=== PATIENT | female | born 1995 | race Caucasian/White ===

== ENCOUNTER 2020-09-10 14:45 | Outpatient (REF) | payer OTHER, SELFPAY ==
--- NOTE | 2020-09-10 14:52 | US_ITS ---
EXAMINATION: US VENOUS ULTRASOUND WITH DOPPLER LOWER EXTREMITY, LEFT CLINICAL INFORMATION: History of DVT. COMPARISON: None available. TECHNIQUE: Ultrasound of the deep veins is performed from the hip to the calf with compression sonography and color and pulse Doppler assessment. Spectral analysis with color-flow imaging is performed. FINDINGS: There is no evidence of deep vein thrombosis from the groin to the calf. Normal vascular flow and compressibility of the veins demonstrated. There is superficial thrombophlebitis. There is a area of partial thrombus the left superficial saphenous vein. Patient indicates pain to lateral knee. Examination of this area shows varicose veins in the superficial soft tissues. No thrombus within these veins. No drainable fluid collection or inflammation. No popliteal cyst. US/US venous duplex LE LT IMPRESSION: 1. No DVT demonstrated in the left lower extremity. 2. Superficial thrombophlebitis. Small area of partial thrombus in the left superficial saphenous vein. 3. Small varicose veins in the area patient indicates is painful at the lateral knee. No thrombus within these veins however.
== END 2020-09-10 14:46 | disposition home or self-care (01) ==
LOC: HO.US 14:45
PROVIDERS: Visit Provider Family Medicine
DX: I82.409 Acute embolism and thrombosis of unspecified deep veins of unspecified lower extremity (principal)
CPT/HCPCS: 93971

== ENCOUNTER 2020-09-13 08:26 | Outpatient (REF) | payer OTHER, SELFPAY ==
[2020-09-13 11:19] LABS: MANUAL DIFF FLAG NO
[2020-09-13 11:44] LABS: Basophils Percent Auto 0.3 % (0-2); Eosinophils Absolute Auto 0.1 X10*3/uL (0.0-0.4); Eosinophils Percent Auto 0.9 % (0-4); Hematocrit 40.5 % (37-47); Hemoglobin 12.8 g/dl (12.0-16.0); Imm Gran Abs Auto 0.01 X10*3/uL (0.00-0.03); Imm Gran Pct Auto 0.2 % (0.0-0.4); Lymphocytes Percent Auto 30.3 % (20-40); Mean Corpuscular HGB Conc 31.6 g/dl (31.0-35.0); Mean Corpuscular Hemoglobin 28.9 pg (27.0-33.0); Mean Corpuscular Volume 91.4 fL (80-98); Mean Platelet Volume 10.7 fL (9.4-12.3); Monocytes Absolute Auto 0.7 X10*3/uL (0.1-1.2); Monocytes Percent Auto 10.4 % (2-11); Neutrophils Absolute Auto 3.7 X10*3/uL (2.0-8.3); Neutrophils Percent Auto 57.9 % (45-73); Platelet Count 311 X10*3/uL (160-400); Red Blood Count 4.43 X10*6/uL (4.20-5.50); Red Cell Distribution Width 13.1 % (11.0-16.0); White Blood Count 6.5 X10*3/uL (4.8-10.8)
[2020-09-13 12:01] LABS: Alanine Aminotransferase 15 U/L (0-31); Albumin Level 4.2 g/dL (3.5-5.0); Alkaline Phosphatase 39 U/L (39-117); Anion Gap 12 (12-20); Aspartate Amino Transferase 12 U/L (5-31); Bilirubin Total 0.7 mg/dL (0.0-1.0); Blood Urea Nitrogen 14 mg/dL (9-16); Calcium 8.9 mg/dL (8.4-10.2); Carbon Dioxide 25 mmol/L (22-29); Chloride 107 mmol/L (96-108); Cholesterol 220 mg/dL; Estimated Glomerular Filt Rate > 60; Glucose Fasting 96 mg/dL (60-99); HDL Cholesterol 39 mg/dL; LDL Cholesterol Calculated 166 mg/dl; Potassium 4.4 mmol/l (3.3-5.1); Sodium 140 mmol/L (135-145); Total Protein 6.8 g/dL (6.5-8.0); Triglycerides 78 mg/dL
[2020-09-13 12:22] LABS: TSH reflex Free T4 1.72 mIU/mL (0.32-4.0)
== END 2020-09-13 08:27 | disposition home or self-care (01) ==
LOC: HO.WFDLDS 08:26
PROVIDERS: Visit Provider Family Medicine
DX: Z00.00 Encounter for general adult medical examination without abnormal findings (principal)
CPT/HCPCS: 36415; 80053; 80061; 84443; 85025

== ENCOUNTER 2020-11-26 11:32 | Outpatient (REF) | payer OTHER, SELFPAY ==
[2020-11-26 14:55] LABS: Cholesterol 236 mg/dL; HDL Cholesterol 49 mg/dL; LDL Cholesterol Calculated 173 mg/dl; Triglycerides 71 mg/dL
== END 2020-11-26 11:33 | disposition home or self-care (01) ==
LOC: HO.WFDLDS 11:32
PROVIDERS: Visit Provider Family Medicine
DX: Z00.00 Encounter for general adult medical examination without abnormal findings (principal); E78.00 Pure hypercholesterolemia, unspecified
CPT/HCPCS: 36415; 80061

== ENCOUNTER 2021-08-19 11:49 | Outpatient (REF) | payer OTHER, SELFPAY | END 2021-08-19 11:50 | disposition home or self-care (01) | LOC: HO.HMGCLDS 11:49 | PROVIDERS: Visit Provider Internal Medicine | DX: Z20.822 Contact with and (suspected) exposure to COVID-19 (principal) | CPT/HCPCS: C9803; U0003; U0005 ==

== ENCOUNTER 2021-08-25 12:29 | Outpatient (REF) | payer OTHER, SELFPAY | END 2021-08-25 12:30 | disposition home or self-care (01) | LOC: HO.HMGCLDS 12:29 | PROVIDERS: Visit Provider Internal Medicine | DX: Z20.822 Contact with and (suspected) exposure to COVID-19 (principal) | CPT/HCPCS: C9803; U0003; U0005 ==

== ENCOUNTER 2022-01-05 11:28 | Outpatient (REF) | payer OTHER, SELFPAY ==
[2022-01-05 13:57] LABS: Cholesterol 178 mg/dL; HDL Cholesterol 48 mg/dL; LDL Cholesterol Calculated 118 mg/dl; Triglycerides 64 mg/dL
== END 2022-01-05 11:29 | disposition home or self-care (01) ==
LOC: HO.WFDLDS 11:28
PROVIDERS: Visit Provider Family Medicine
DX: Z00.00 Encounter for general adult medical examination without abnormal findings (principal); E78.00 Pure hypercholesterolemia, unspecified
CPT/HCPCS: 36415; 80061

== ENCOUNTER 2023-03-01 12:04 | Outpatient (REF) | payer OTHER, SELFPAY ==
[2023-03-01 15:11] LABS: Alanine Aminotransferase 13 U/L (0-31); Albumin Level 4.1 g/dL (3.5-5.0); Alkaline Phosphatase 42 U/L (39-117); Anion Gap 12 (12-20); Aspartate Amino Transferase 12 U/L (5-31); Bilirubin Total 0.6 mg/dL (0.0-1.0); Blood Urea Nitrogen 9 mg/dL (9-16); Calcium 9.5 mg/dL (8.4-10.2); Carbon Dioxide 26 mmol/L (22-29); Chloride 106 mmol/L (96-108); Cholesterol 185 mg/dL; Estimated Glomerular Filt Rate > 60; Glucose Fasting 87 mg/dL (60-99); HDL Cholesterol 40 mg/dL; LDL Cholesterol Calculated 122 mg/dl; Sodium 140 mmol/L (135-145); Triglycerides 117 mg/dL
[2023-03-01 15:13] LABS: TSH reflex Free T4 1.98 uIU/mL (0.32-4.0)
== END 2023-03-01 12:05 | disposition home or self-care (01) ==
LOC: HO.WFDLDS 12:04
PROVIDERS: Visit Provider Family Medicine
DX: Z00.00 Encounter for general adult medical examination without abnormal findings (principal); Z20.2 Contact with and (suspected) exposure to infections with a predominantly sexual mode of transmission
CPT/HCPCS: 36415; 80053; 80061; 84443; 85025

== ENCOUNTER 2023-03-04 14:01 | Outpatient (AMB) | payer OTHER, SELFPAY ==
[2023-03-04 14:06] VITALS: BP 122/78; PULSE 67; O2SAT 99; BMI 38.9
--- NOTE | 2023-03-04 14:06 | MHC.PC.OV ---
Vital Signs 03/04/23 14:06 Height 5 ft 7 in Weight 248 lb 2 oz BMI 38.9 BP 122/78 Blood Pressure Location Lt brachial Position Sitting Pulse 67 Pulse Source Pulse Oximeter Pulse Oximetry (%) 99 Oxygen Delivery Method Room Air Intake Visit Reasons: CPE with f/u labs and health maintenance Intake Note: Patient is here for physical and follow up on labs. Allergies No Known Allergies Allergy (Verified 03/04/23 14:08) Tobacco use date assessed: 03/04/23 Dental Screening Dental Screen Date: 03/04/23 Did you have a dental problem in the last 6 months where you did not have access to dental care?: No Was dental information given to patient?: No HPI CPE with f/u labs and health maintenance HPI Details 27 y/o female presents for a CPE with f/u labs and health maintenance. Labs were drawn 03/01/23. Her labs were fine. She is on ezetimibe 10mg daily. [facility] Medical History Left leg DVT Vasovagal near syncope Surgical History No significant past surgical history Family History Mother No problems noted. Father No problems noted. 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 Carlito Frank, Taya Swartz, Eduin Neumann and colleagues, with an educational maynor from [employer]. Review of Systems Const Denies chills, Denies fatigue, Denies fever(s), Denies headache(s) and Denies weakness Eyes Denies change in vision ENT Denies dizziness, Denies headache(s), Denies hearing loss, Denies nasal congestion, Denies sinus pain, Denies sinus pressure and Denies sore throat Card Denies chest pain, Denies lightheadedness, Denies dyspnea and Denies other (palpitations) Resp Denies cough, Denies dyspnea and Denies wheezing GI Denies abdominal pain, Denies melena, Denies hematochezia, Denies change in bowel habits, Denies dyspepsia and Denies nausea Denies hematuria and Denies dysuria Musc Denies abnormal gait, Denies myalgias, Denies arthralgias, Denies numbness and Denies tingling Skin/Breast Denies rash, Denies unusual bruising and Denies wounds Neuro Denies abnormal gait, Denies dizziness, Denies headache(s), Denies memory loss, Denies numbness, Denies Sensory deficit (Neuro), Denies tingling and Denies weakness Psych Denies anxiety, Denies depression and Denies memory loss Endo Denies cold intolerance, Denies fatigue, Denies heat intolerance, Denies polydipsia and Denies polyuria Micky/Lymph Denies easy bleeding and Denies easy bruising Aller/Immun Denies wheezing Physical exam (Primary Care) Vital Signs: Last Vital Signs Pulse 67 03/04/23 14:06 BP 122/78 03/04/23 14:06 Pulse Ox 99 03/04/23 14:06 Oxygen Delivery Method Room Air 03/04/23 14:06 BMI result Body Mass Index 38.9 Tobacco/Smoking Status: Tobacco use Status Tobacco use date assessed 03/04/23 03/04/23 14:19 Patient Tobacco Use Status Never used Tobacco 03/04/23 14:16 e-Cigarette/Vaping Use Never Used 03/04/23 14:16 Const General: no acute distress, well developed, alert and awake Nutritional Appearance: well nourished Orientation/consciousness: patient oriented x3 HENMT Head: Yes normocephalic and Yes atraumatic Ears: hearing grossly normal bilaterally and TM's normal bilaterally General nose exam: Normal external nose present and Normal nares present Mouth: Normal oral and palatal mucosa present and moist mucous membranes Teeth and gingiva: dentition normal Throat: Yes posterior oropharynx normal Eyes General: appearance normal, both eyes and all related structures Pupils: Equal, round and reactive pupils present and Pupil accommodation reflex normal EOM: EOMs intact bilaterally Neck Neck: Yes normal visual inspection, Yes no lymphadenopathy and Yes trachea midline Thyroid: Thyroid normal Carotids: no bruits Lymphatic: no lymphadenopathy noted Chest Chest palpation & inspection: normal inspection of the chest Resp Effort & Inspection: normal respiratory effort Auscultation: clear to auscultation bilaterally Cardio Rate: regular rate Rhythm: regular rhythm Heart sounds: S1 normal heart sound present, S2 normal heart sound present, no gallops, Murmur heart sound present (2/6 systolic murmur over the aortic region and mitral region, loudest over ) and no rubs Bruits: no abdominal aortic bruits and no carotid bruits GI Palpation (GI): No Abdominal aortic bruit present, Soft to palpation, nontender, No hepatosplenomegaly present and No Rebound tenderness present Auscultation: normal bowel sounds General: Yes no CVA tenderness Back/Spine/Pelvis Back: no CVA tenderness Cervical Spine: cervical ROM normal and No Cervical spine tenderness Thoracic/Lumbar Spine: thoraco-lumbar ROM normal, No pain with thoraco-lumbar ROM, No thoracic spinal tenderness and No lumbar spinal tenderness Skin Lesions: no lesions Rashes: no rashes Trauma: no lacerations or abrasions Wounds: no wounds Nails: normal Neuro General: patient oriented x3 Cranial nerves: Yes Equal, round and reactive pupils present Cognition (Neuro): normal cognition Gait exam (Neuro): Normal gait present Motor exam (neuro): 5/5 motor strength present throughout Sensory Exam: No Sensory deficit (Neuro) Deep tendon reflexes (DTR's): Right patellar reflex intensity grade: 2+ and Left patellar reflex intensity grade: 2+ Extrem General: Yes normal to inspection and No edema Psych Appearance: grossly normal Affect: normal affect Attitude: cooperative Thought process: Normal thought process present Assessment and Plan Assessment & Plan (1) Annual physical exam: Code(s): Z00.00 - Encounter for general adult medical examination without abnormal findings Plan: 27-year-old female presents for complete physical exam Encouraged healthy diet with active lifestyle and plenty of exercise (2) Anxiety with depression: Code(s): F41.8 - Other specified anxiety disorders Plan: This has essentially resolved with a job change She will let me know if any symptoms resume Currently she feels no need for medication or therapist (3) Murmur: Code(s): R01.1 - Cardiac murmur, unspecified Plan: 2/6 systolic murmur loudest over aorta Check echocardiogram (4) Hypercholesterolemia: Code(s): E78.00 - Pure hypercholesterolemia, unspecified Plan: Lipids are controlled. She is on Zetia Some decrease in her HDL which coincides with job change and difference in activity level. Encouraged exercise (5) GERD (gastroesophageal reflux disease): Code(s): K21.9 - Gastro-esophageal reflux disease without esophagitis Plan: Trial famotidine She will let me know if symptoms persist (6) Bruise: Code(s): T14.8XXA - Other injury of unspecified body region, initial encounter Plan: Small bruises at shins. No expanding bruises or dependent tracking of hematoma. No significant heavy periods, nose bleeds minimal gum bleeding (7) Screening for cervical cancer: Code(s): Z12.4 - Encounter for screening for malignant neoplasm of cervix Plan: Overdue for Pap smear-referred to lead database administrator Orders: Orders CA echo transthoracic complete Today R01.1 - Cardiac murmur, unspecified Referrals [facility] WAITER/WAITRESS Referral Z12.4 - Encounter for screening for malignant neoplasm of cervix Medications: New famotidine 20 mg PO DAILY 30 tabs 3RF 30 days Discontinued bupropion HCl Discontinued Reason: Patient no longer taking 75 mg PO BID 30 days 60 tabs 2RF Coding Level of Care Code Est Pt Level 3 (19793) Diagnoses Annual physical exam Z00.00 Anxiety with depression F41.8 Murmur R01.1 Hypercholesterolemia E78.00 GERD (gastroesophageal reflux disease) K21.9 Bruise T14.8XXA Screening for cervical cancer Z12.4
== END 2023-03-04 14:55 | disposition home or self-care (01) ==
PROVIDERS: Visit Provider Family Medicine
DX: Z00.00 Encounter for general adult medical examination without abnormal findings (principal); F41.8 Other specified anxiety disorders; K21.9 Gastro-esophageal reflux disease without esophagitis; R01.1 Cardiac murmur, unspecified; E78.00 Pure hypercholesterolemia, unspecified; T14.8XXA Other injury of unspecified body region, initial encounter
CPT/HCPCS: 99395

== ENCOUNTER → 2023-09-06 14:50 | Outpatient (REF) | payer OTHER, SELFPAY ==
--- NOTE | 2023-09-06 14:52 | CA_ITS ---
Transthoracic Echocardiogram Patient (Last, First, Middle): Yonny Davison, Gender: Female Date of : 1995 Age: 27 Procedure Date: 09/06/2023 Procedure Type: Transthoracic Echocardiogram Location: OP Height: 170.18 cm Weight: 112.49 kg BSA: 2.22 m2 Heart Rate: 69 bpm BP: 118 / 74 mmHg Printing Press Machine Operator: SB Referring MD: Chevy Cunningham MD Symptoms: R01.1 - Cardiac murmur, unspecified Study Quality: Adequate w contrast ECG Rhythm: Sinus Conclusions: - The left ventricular systolic function is normal. The calculated ejection fraction is 65% by biplane method. - No obvious valvular pathology seen on this study. Findings Procedure Information Contrast agent, definity, is being given per protocol without apparent complications. Left Ventricle Normal left ventricular cavity size. There is normal left ventricular wall thickness. The left ventricular systolic function is normal. The calculated ejection fraction is 65% by biplane method. There is no evidence of regional wall motion abnormalities. Diastolic function is normal for age. Right Ventricle Normal right ventricular cavity size and systolic function. Atria Both atria are normal in size. Aortic Valve There is a normal trileaflet aortic valve. There is no aortic valve stenosis. There is no aortic valve regurgitation. Mitral Valve The mitral valve appears normal. There is no mitral valve regurgitation. There is no mitral valve stenosis. Pulmonic Valve The pulmonic valve is likely normal. Tricuspid Valve Normal tricuspid valve structure. There is mild tricuspid valve regurgitation. There is no evidence of pulmonary hypertension. Great Vessels The asc aorta is normal in size. Venous The inferior vena cava is normal in size and collapses less than 50% with inspiration. Pericardium/Pleural There is no evidence of pericardial effusion. Prior Study Comparison No prior study available for comparison. Recommendations, Care & Conclusions No obvious valvular pathology seen on this study. Measurements 2D Linear Measurements IVSd: 0.66 0.6-0.9/0.6-1.0 cm LVIDd: 4.96 3.9-5.3/4.2-5.9 cm LVIDd Index: 2.23 2.4-3.2/2.2-3.1 cm/m2 LVIDs: 3.24 2.0-3.6 cm LVPWd: 0.43 0.7-1.1 cm LA Diam: 4.00 2.7-3.8/3.0-4.0 cm LAIDs Index: 1.80 1.5-2.3 cm/m2 LV Mass: 103.28 67-162/88-224 g LV Mass Index: 46.52 43-95/49-115 g/m2 LVOT Diam: 1.90 3.0+(-)1.3 cm 2D Systolic Function EF 4C: 62.60 >55% EF 2C: 64.30 >55% EF BiP: 64.50 >55% Mitral Valve MV Pk E: 1.02 MV PK A: 0.53 MV Decel Time: 194.00 E/A: 1.90 E'Lateral: 15.20 E'Medial: 11.30 E/E' Med: 9.00 E/E' Lat: 6.70 PHT: 57.00 MVA PHT: 3.86 Decel [place]: 5.22 Aortic Valve AoV Pk Trev: 1.83 AoV Mn Trev: 1.26 AoV VTI: 0.37 AoV Pk Grad: 13.00 Aov Mn Grad: 7.00 ANASTASIIA Cont.VTI: 2.27 LVOT LVOT Pk Trev: 1.35 LVOT Mn Trev: 0.99 LVOT VTI: 0.29 LVOT Pk Grad: 7.00 LVOT Mn Grad: 5.00 LVOT Diam: 1.90 LVOT Area: 2.84 Diastolic Function MV Pk E: 1.02 MV Pk A: 0.53 E/A: 1.90 E'Medial: 11.30 E/E' Med: 9.00 E' Laterial: 15.20 E/E' Lat: 6.70 Right Ventricle TAPSE (mm): 23.80 TVS' Trev: 15.60 Tricuspid Valve TR Pk Trev: 2.24 TR Pk Grad: 20.00 RA Press: 8.00 RVSP: 23.00 Great Vessels Aorta Sinus of Valsalva: 2.50 2.0-3.5 cm Ao Asc: 2.20 2.1-3.4 cm Ao Arch: 2.30 Pulmonary Veins Pulm Vein S/D 1.30 Pulmonary Valve PV Pk Trev: 1.32 Peak PV Grad: 7.00 Updated in Other Vendor System with Status of Final Sergio Mo MD electronically signed on 09/07/2023 11:40:03 AM with status of Final
== END ==
LOC: HO.CARD 14:50
PROVIDERS: PCP Family Medicine; Visit Provider Family Medicine
DX: R01.1 Cardiac murmur, unspecified (principal)
CPT/HCPCS: 93306; Q9957

== ENCOUNTER → 2023-09-06 14:52 | Outpatient (BNV) | payer OTHER, SELFPAY | PROVIDERS: PCP Family Medicine; Visit Provider Internal Medicine | DX: I36.1 Nonrheumatic tricuspid (valve) insufficiency (principal) | CPT/HCPCS: 93306 ==

== ENCOUNTER 2023-10-15 14:32 | Outpatient (AMB) | payer OTHER, SELFPAY ==
[2023-10-15 14:35] VITALS: BP 122/76; PULSE 89; O2SAT 99; BMI 39.5
--- NOTE | 2023-10-15 14:35 | MHC.PC.OV ---
Vital Signs 10/15/23 14:35 Height 5 ft 7 in Weight 252 lb 8 oz BMI 39.5 BP 122/76 Blood Pressure Location Lt brachial Position Sitting Pulse 89 Pulse Source Pulse Oximeter Pulse Oximetry (%) 99 Oxygen Delivery Method Room Air Intake Visit Reasons: Specialist Follow up Intake Note: Patient is here following up on echocardiogram. Patient is complaining of body aches for years,she states aches up and down arms, legs, joints, and hips. Allergies No Known Allergies Allergy (Verified 10/15/23 14:41) Tobacco use date assessed: 10/15/23 Dental Screening Dental Screen Date: 10/15/23 Did you have a dental visit in the last 12 months?: No Did you have a dental problem in the last 6 months where you did not have access to dental care?: No Was dental information given to patient?: Yes HPI Specialist Follow up HPI Details 27 y/o female presents to f/u a systolic murmur. Had ordered an echocardiogram. Echocardiogram done 09/06/23 and was fine. Pt reports polyarthralgia. [facility] Medical History Left leg DVT Vasovagal near syncope Surgical History No significant past surgical history Family History Mother No problems noted. Father No problems noted. 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 Carlito Frank, Taya Swartz, Eduin Neumann and colleagues, with an educational maynor from [employer]. Review of Systems Const Denies chills, Denies fatigue, Denies fever(s), Denies headache(s) and Denies weakness ENT Denies dizziness and Denies headache(s) Card Denies dyspnea Resp Denies cough, Denies dyspnea, Denies wheezing and Denies other (shortness of breath) Musc Denies numbness and Denies tingling Neuro Denies dizziness, Denies headache(s), Denies numbness, Denies tingling and Denies weakness Psych Denies anxiety and Denies depression Endo Denies fatigue Aller/Immun Denies wheezing Physical exam (Primary Care) Vital Signs: Last Vital Signs Pulse 89 10/15/23 14:35 BP 122/76 10/15/23 14:35 Pulse Ox 99 10/15/23 14:35 Oxygen Delivery Method Room Air 10/15/23 14:35 BMI result Body Mass Index 39.5 Tobacco/Smoking Status: Tobacco use Status Tobacco use date assessed 10/15/23 10/15/23 14:50 Patient Tobacco Use Status Never used Tobacco 10/15/23 14:40 e-Cigarette/Vaping Use Never Used 10/15/23 14:40 Const General: well developed; No acute distress Nutritional Appearance: well nourished Orientation/consciousness: patient oriented x3 HENMT Head: Yes normocephalic and Yes atraumatic Eyes General: appearance normal, both eyes and all related structures Pupils: Equal, round and reactive pupils present EOM: EOMs intact bilaterally Resp Effort & Inspection: normal respiratory effort Auscultation: clear to auscultation bilaterally Cardio Rate: regular rate Rhythm: regular rhythm Heart sounds: S1 normal heart sound present, S2 normal heart sound present, no gallops, Murmur heart sound present (2/6 persistent systolic murmur ) and no rubs Neuro General: patient oriented x3 and gait normal Cranial nerves: Yes Equal, round and reactive pupils present Psych Affect: normal affect Assessment and Plan Assessment & Plan (1) Murmur: Code(s): R01.1 - Cardiac murmur, unspecified Plan: Patient?has?a?2/6?persistent?systolic?murmur Echocardiogram?is?normal Benign?murmur (2) Polyarthralgia: Code(s): M25.50 - Pain in unspecified joint Plan: Pain?at?multiple?joints?and?locations?that?appear?consistent?with?fibromyalgia. Will?check?inflammatory?and?autoimmune?markers?however?as?that?is?a?diagnosis?of?exclusion. Also?has?a?history?of?anxiety?and?depression?which?can?also?be?a?cause?for?somatic?aches?and?pains?or?be?further?associated?with?fibromyalgia. Patient?notes?a?family?history?of?lupus.??She?also?is?concerned?about?hyper?mobile?joints. As?above,?inflammatory?and?autoimmune?markers?are?ordered. Will?follow-up?on?these?in?4-6?weeks. May?need?referral?to?Rheumatology?and?or?physical?therapy Orders: Orders CRP High Sensitivity Today M25.50 - Pain in unspecified joint Lyme IgG/IgM w/reflex to WB Today M25.50 - Pain in unspecified joint WERNER Reflex Titer and Pattern Today M25.50 - Pain in unspecified joint Erythrocyte Sedimentation Rate Today M25.50 - Pain in unspecified joint Complete Blood Count Auto Diff Today M25.50 - Pain in unspecified joint, Z00.00 - Encounter for general adult medical examination without abnormal findings Rheumatoid Factor Today M25.50 - Pain in unspecified joint Coding Level of Care Code Est Pt Level 3 (52993) Diagnoses Murmur R01.1 Polyarthralgia M25.50
== END 2023-10-15 15:07 | disposition home or self-care (01) ==
PROVIDERS: PCP Family Medicine; Visit Provider Family Medicine
DX: R01.1 Cardiac murmur, unspecified (principal); M25.50 Pain in unspecified joint
CPT/HCPCS: 99213

== ENCOUNTER 2023-11-15 08:36 | Outpatient (REF) | payer OTHER, SELFPAY ==
[2023-11-15 11:52] LABS: Erythrocyte Sedimentation Rate 7 MM/HR (0-20)
[2023-11-15 12:09] LABS: Basophils Percent Auto 0.5 % (0-2); Eosinophils Absolute Auto 0.1 X10*3/uL (0.0-0.4); Hematocrit 39.1 % (37.0-47.0); Hemoglobin 12.4 g/dl (12.0-16.0); Imm Gran Abs Auto 0.01 X10*3/uL (0.00-0.03); Imm Gran Pct Auto 0.2 % (0.0-0.4); Lymphocytes Absolute Auto 1.8 X10*3/uL (1.2-4.9); Lymphocytes Percent Auto 31.5 % (20-40); MANUAL DIFF FLAG SCAN; Mean Corpuscular HGB Conc 31.7 g/dl (31.0-35.0); Mean Corpuscular Hemoglobin 29.4 pg (27.0-33.0); Mean Corpuscular Volume 92.7 fL (80.0-98.0); Mean Platelet Volume 12.1 fL (9.4-12.3); Monocytes Absolute Auto 0.5 X10*3/uL (0.1-1.2); Monocytes Percent Auto 8.4 % (2-11); Neutrophils Absolute Auto 3.3 x10*3/uL (2.0-8.3); Neutrophils Percent Auto 58.4 % (45-73); PLT CLUMP 1; Red Blood Count 4.22 X10*6/uL (4.20-5.50); SCAN SMEAR FLAG 1
[2023-11-15 12:22] LABS: Appearance Urine Cloudy; Color Urine Yellow; Glucose Urine UA Negative (Negative); Leukocyte Esterase Urine Negative (Negative); Nitrite Urine Negative (Negative); Specific Gravity - Urine 1.025 (1.005-1.025); Urine Blood Negative (Negative); Urine Ketones Negative (Negative); Urine Protein Negative (Neg-Trace)
[2023-11-15 12:31] LABS: Rheumatoid Factor < 13.0 IU/mL (<15.0)
[2023-11-15 13:24] LABS: Creatinine Urine 210.03 mg/dL; Microalbum/Creatinine Ratio Ur 9.5 ug/mg cr (<30)
[2023-11-15 13:42] LABS: Platelet Count 246 X10*3/uL (160-400); White Blood Count 5.7 X10*3/uL (4.8-10.8)
[2023-11-15 13:43] LABS: SLIDE REVIEW VERIFIED
[2023-11-16 13:12] LABS: Lyme Abs Screen <0.90 index
[2023-11-16 17:48] LABS: CRP High Sensitivity 2.9 mg/L
[2023-11-17 14:40] LABS: Anti Nuclear Antibody Screen NEGATIVE (NEGATIVE)
== END 2023-11-15 08:37 | disposition home or self-care (01) ==
LOC: HO.WFDLDS 08:36
PROVIDERS: Visit Provider Family Medicine
DX: Z00.00 Encounter for general adult medical examination without abnormal findings (principal); M25.50 Pain in unspecified joint; I10 Essential (primary) hypertension
CPT/HCPCS: 36415; 81003; 82043; 82570; 85025; 85652; 86038; 86141; 86431; 86617; 86618

== ENCOUNTER 2023-11-19 09:42 | Outpatient (AMB) | payer OTHER, SELFPAY ==
[2023-11-19 09:45] VITALS: BP 118/70; PULSE 78; O2SAT 97; BMI 38.8
--- NOTE | 2023-11-19 09:45 | MHC.PC.OV ---
Vital Signs 11/19/23 09:45 Height 5 ft 7 in Weight 248 lb BMI 38.8 BP 118/70 Blood Pressure Location Lt brachial Position Sitting Pulse 78 Pulse Source Pulse Oximeter Pulse Oximetry (%) 97 Oxygen Delivery Method Room Air Intake Visit Reasons: f/u polyarthralgia Intake Note: Patient is here to follow up on polyarthralgia. Allergies No Known Allergies Allergy (Verified 11/19/23 09:48) Medication List - Last Reconciled 11/19/23 by Chevy Cunningham MD ezetimibe 10 mg PO DAILY 90 days Tobacco use date assessed: 11/19/23 Dental Screening Dental Screen Date: 11/19/23 Did you have a dental visit in the last 12 months?: No Did you have a dental problem in the last 6 months where you did not have access to dental care?: No Was dental information given to patient?: No HPI f/u polyarthralgia HPI Details 28 y/o female presents to f/u polyarthralgia. Labs were fine. Pt also reports some allergies. [facility] Medical History Left leg DVT Vasovagal near syncope Surgical History No significant past surgical history Family History Mother No problems noted. Father No problems noted. 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 1. Little interest or pleasure in doing things: not at all 2. Feeling down, depressed, or hopeless: nearly every day 3. Trouble falling or staying asleep, or sleeping too much: nearly every day 4. Feeling tired or having little energy: nearly every day 5. Poor appetite or overeating: not at all 6. Feeling bad about yourself - or that you are a failure or have let yourself or your family down: not at all 7. Trouble concentrating on things, such as reading the newspaper or watching television: several days 8. Moving or speaking so slowly that other people could have noticed. Or the opposite - being so fidgety or restless that you have been moving around a lot more than usual: not at all 9. Thoughts that you would be better off or of hurting yourself in some way: not at all Total score: 10 Depression Screening Interpretation: Positive Depression Screening Done: Yes Source: Developed by Drs. Carlito Frank, Taya Swartz, Eduin Neumann and colleagues, with an educational maynor from [employer]. Thrive Questionnaire Date Thrive assessed: 11/19/23 I am a: Patient What is your living situation today?: I have a steady place to live Within the past 12 months, did the food you bought not last and you didn't have the money to get more?: Never true Within the past 12 months, did you worry whether your food would run out before you got money to buy more?: Never true Do you have trouble paying for medicines?: No Do you have trouble getting transportation to medical appointments?: No Do you have trouble paying your heating and electricity bill?: No Do you have trouble taking care of your child, family member or friend?: No Do you have trouble with day-to-day activities such as bathing, preparing meals, shopping, managing finances, etc.?: No Are you currently unemployed and looking for a job?: No Are you interested in more education?: No THRIVE Score: 0 AUDIT C Alcohol Use Questionnaire (AUDIT-C) 1. How often do you have a drink containing alcohol?: Monthly or less 2. How many drinks containing alcohol do you have on a typical day when you are drinking?: 1 or 2 3. How often do you have six or more drinks on one occasion?: Never Total Score: 1 LUCERO-7 AMB Questionnaire LUCERO-7 Date LUCERO - 7 assessed: 11/19/23 Feeling nervous, anxious, or on edge: 1 = Several days Not being able to stop or control worryin = Not at all Worrying too much about different things: 0 = Not at all Trouble relaxin = Several days Being so restless that it is hard to sit still: 0 = Not at all Becoming easily annoyed or irritable: 0 = Not at all Feeling afraid as if something awful might happen: 0 = Not at all Total LUCERO-7 score (0-4 normal; 5-9 mild; 10-14 moderate; 15-21 severe): 2 Source: Developed by Drs. Carlito Frank, Taya Swartz, Eduin Neumann and colleagues, with an educational maynor from [employer]. Review of Systems Const Denies chills, Denies fatigue, Denies fever(s), Denies headache(s) and Denies weakness ENT Denies dizziness and Denies headache(s) Card Denies dyspnea Resp Denies cough, Denies dyspnea, Denies wheezing and Denies other (shortness of breath) Musc Denies numbness and Denies tingling Neuro Denies dizziness, Denies headache(s), Denies numbness, Denies tingling and Denies weakness Psych Denies anxiety and Denies depression Endo Denies fatigue Aller/Immun Denies wheezing Physical exam (Primary Care) Vital Signs: Last Vital Signs Pulse 78 11/19/23 09:45 BP 118/70 11/19/23 09:45 Pulse Ox 97 11/19/23 09:45 Oxygen Delivery Method Room Air 11/19/23 09:45 BMI result Body Mass Index 38.8 Tobacco/Smoking Status: Tobacco use Status Tobacco use date assessed 11/19/23 11/19/23 09:56 Patient Tobacco Use Status Never used Tobacco 11/19/23 09:56 e-Cigarette/Vaping Use Never Used 11/19/23 09:56 PHQ-9: PHQ-9 Score PHQ-9: Total score 10 11/19/23 09:56 Depression Screening Interpretation: Positive Thrive Assessment: Date of Thrive Assessment Date Thrive assessed 11/19/23 11/19/23 09:56 Const General: well developed; No acute distress Nutritional Appearance: well nourished Orientation/consciousness: patient oriented x3 HENMT Head: Yes normocephalic and Yes atraumatic Eyes General: appearance normal, both eyes and all related structures Pupils: Equal, round and reactive pupils present EOM: EOMs intact bilaterally Resp Effort & Inspection: normal respiratory effort Neuro General: patient oriented x3 and gait normal Cranial nerves: Yes Equal, round and reactive pupils present Psych Affect: normal affect Assessment and Plan Assessment & Plan (1) Polyarthralgia: Code(s): M25.50 - Pain in unspecified joint Plan: Ongoing?polyarthralgia?with?bilateral?hip?and?him?pain?also?some?upper?chest?and?back?pain. Lab?work?including?inflammatory?markers,?rheumatoid?factor?and?Lyme?testing?are?all?negative Patient?is?concerned?about?hypermobility?syndrome?and?hyper?mobile?joints Will?refer?her?to?Rheumatology We?discussed?today?that?based?on?her?symptoms?and?if?she?has?no?other?explanations,?fibromyalgia?is?more?likely. Briefly?discussed?medications?such?as?duloxetine?and?exercise. (2) Allergies: Code(s): T78.40XA - Allergy, unspecified, initial encounter Plan: She?can?use?xaoi-zli-fzpkjvz?medications?such?as?Zyrtec?or?Ariana Also?briefly?discuss?nasal?steroids?and?antihistamine?eyedrops (3) Murmur: Code(s): R01.1 - Cardiac murmur, unspecified Plan: Echocardiogram?is?unremarkable. Faint?benign?murmur?unchanged Orders: Orders XR hand LT 2V Today M25.50 - Pain in unspecified joint XR hips LORRAINE min 3V Today M25.50 - Pain in unspecified joint, M25.551 - Pain in right hip, M25.552 - Pain in left hip XR hand RT 2V Today M25.50 - Pain in unspecified joint Referrals Rheumatology Referral M25.50 - Pain in unspecified joint Coding Level of Care Code Est Pt Level 3 (03061) Diagnoses Polyarthralgia M25.50 Allergies T78.40XA Murmur R01.1
== END 2023-11-19 10:22 | disposition home or self-care (01) ==
PROVIDERS: PCP Family Medicine; Visit Provider Family Medicine
DX: M25.50 Pain in unspecified joint (principal); T78.40XA Allergy, unspecified, initial encounter; R01.1 Cardiac murmur, unspecified
CPT/HCPCS: 99213

== ENCOUNTER 2024-01-04 12:46 | Outpatient (AMB) | payer OTHER, SELFPAY ==
--- NOTE | 2024-01-04 13:00 | A.OFFVIS_ITS ---
Vital Signs 01/04/24 13:01 Height 5 ft 7 in Weight 250 lb 7.122 oz BMI 39.2 BP 122/66 Blood Pressure Location Rt brachial Position Sitting Pulse 88 Pulse Source Pulse Oximeter Pulse Oximetry (%) 100 Oxygen Delivery Method Room Air Intake Visit Reasons: Joint Pain Intake Note: New patient presents today for consult, internally referred by PCP Dr Cunningham. She is concerned with hypermobility. C/o pain in multiple joints. Reports L knee injury aprox 2020, slipped and tore ligaments, seen at [facility]. She states she was in a full leg brace x 1 month and developed DVT's. 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 She is also concerned with hypermobility. She states that she has had multiple areas of pain for many years including her neck, back, shoulders, arms, elbows, knees, hips. She stated that she slipped and fell 2020 and door multiple ligaments in her left knee. She was in a long raise that started at her hip and ended in her ankle. She developed DVTs and SVTs and was on anticoagulation for approximately 6 months. She states that she has always been hypermobile, she believes that right knee was dislocated once a few years ago but she quickly put it back in place. She did not need any medical attention. Difficulty falling and staying asleep. She has history of anxiety and was on 2 different the presence in the past but they made her sluggish she was evaluated by a psychotherapist in the past but did not feel the therapist was a good fit. She is unaware of any family history of an autoimmune rheumatic disease except for her maternal aunt who was diagnosed with lupus. [facility] Medical History Left leg DVT Vasovagal near syncope Surgical History No significant past surgical history Family History Mother No problems noted. Father No problems noted. 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 Current occupational exposures/hazards: No Sexual orientation: Straight/Heterosexual Gender identity: Female Cognitive needs: No Hearing needs: No Vision needs: Yes (Patient wears glasses) Review of Systems Const Reports headache(s) and Reports weight gain Eyes Reports dry eyes ENT Reports dizziness, Reports headache(s) and Reports tinnitus Musc Reports arthralgias, Denies joint swelling and Reports stiffness Skin/Breast Reports unusual bruising Neuro Reports dizziness and Reports headache(s) Psych Reports abnormal sleep pattern and Reports anxiety Physical Exam Vital Signs: Last Vital Signs Pulse 88 01/04/24 13:01 BP 122/66 01/04/24 13:01 Pulse Ox 100 01/04/24 13:01 Oxygen Delivery Method Room Air 01/04/24 13:01 BMI result Body Mass Index 39.2 Const General: cooperative, healthy appearing and comfortable Nutritional Appearance: obese morbidly obese Orientation/consciousness: patient oriented x3 Limitations: no limitations HEENT Head: Yes normocephalic and Yes atraumatic Mouth: moist mucous membranes Resp Effort & Inspection: normal respiratory effort and able to speak in complete sentences Auscultation: clear to auscultation bilaterally Cardio Rate: regular rate Rhythm: regular rhythm Neuro General: patient oriented x3 Extrem Other: No active synovitis Multiple myofascial tender points Hyper extensible elbows Bilateral positive thumb sign Bilateral genu valgus Assessment & Plan Assessment & Plan (1) Polyarthralgia: Code(s): M25.50 - Pain in unspecified joint Category: Medical Plan: This is a 28-year-old female who presents for evaluation of diffuse pain. Upon evaluation I do not see any evidence of an autoimmune rheumatic disease. Clinical picture consistent with fibromyalgia and hypermobility. Discussed management of fibromyalgia with patient. Is a noninflammatory, non- autoimmune central afferent processing disorder leading to a diffuse pain syndrome. I suggested that patient try to address her underlying psychiatric anxiety. I suggested evaluation by a therapist and/or a psychiatrist. Consider a sleep study evaluation to rule out obstructive sleep apnea. Patient would benefit from increased physical activity, either through formal physical therapy or by joining a gym. Advised patient that she should start activity slowly and increase as tolerated. Consider low-impact exercises such as walking, swimming, aqua therapy stretching, yoga. (2) Hypermobility syndrome: Code(s): M35.7 - Hypermobility syndrome Category: Medical Plan: Discussed hypermobility syndrome. I suggested physical therapy evaluation for joint protection techniques as well as muscle strengthening. She will discuss it with PCP Plan I spent 30 minutes reviewing patient's chart, evaluating patient, , counseling patient and documenting in the chart Coding Level of Care Code New Pt Level 3 (58309) Diagnoses Polyarthralgia M25.50 Hypermobility syndrome M35.7
[2024-01-04 13:01] VITALS: BP 122/66; PULSE 88; O2SAT 100; BMI 39.2
== END 2024-01-04 13:47 | disposition home or self-care (01) ==
PROVIDERS: PCP Family Medicine; Visit Provider Student in an Organized Health Care Education/Training Program
DX: M25.50 Pain in unspecified joint (principal); M35.7 Hypermobility syndrome
CPT/HCPCS: 99203

== ENCOUNTER → 2024-01-04 12:46 | Outpatient (BNVA) | payer OTHER, SELFPAY | PROVIDERS: PCP Family Medicine; Visit Provider Student in an Organized Health Care Education/Training Program ==

== ENCOUNTER 2024-03-06 15:51 | Outpatient (AMB) | payer OTHER, SELFPAY ==
--- NOTE | 2024-03-06 16:06 | A.OFFPC_ITS ---
Vital Signs 03/06/24 16:14 Height 5 ft 7 in Weight 249 lb BMI 39.0 BP 108/64 Blood Pressure Location Rt brachial Position Sitting Respiration 14 Pulse 85 Pulse Source Pulse Oximeter Temp 97.6 F Temp Source Temporal Artery Scan Pulse Oximetry (%) 99 Oxygen Delivery Method Room Air Intake Visit Reasons: CPE with f/u labs and health maintenance Intake Note: Patient has notices tons of small red bumps that have been randomly appearing. Patient is worried that this is sign of lupus which run in her family. Rate Setter Required: No Accompanied by: Self / Same As Patient Allergies No Known Allergies Allergy (Verified 03/06/24 16:21) Tobacco use date assessed: 03/06/24 Dental Screening Dental Screen Date: 03/06/24 Did you have a dental visit in the last 12 months?: No Did you have a dental problem in the last 6 months where you did not have access to dental care?: No Was dental information given to patient?: Patient has dentist HPI CPE with f/u labs and health maintenance HPI Details 28 y/o female presents for a CPE with f/ u labs and health maintenance. No recent labs to review. Had complaints of polyarthralgia and saw rheumatology 01/04/24. Per note clinical picture was consistent with fibromyalgia and hypermobility. Pt reports concerns about her weight. She is requesting a therapist for anxiety/depression. [facility] Medical History Left leg DVT Vasovagal near syncope Surgical History No significant past surgical history Family History (Updated 03/06/24 @ 16:24 by CHYNA Johnson) Mother No problems noted. Father No problems noted. Maternal Aunt Lupus Maternal Grandfather Family history of hemochromatosis Other Stomach cancer Social History Housing: Apartment Alcohol intake: current Alcohol intake frequency: holidays/special occasions o nly Patient Tobacco Use Status: Never used Tobacco e-Cigarette/Vaping Use: Never Used Second Hand Smoke Exposure: No Special julieta needs: No Advance Directives Date on File: 03/04/23 service: No Current occupational status: employed Current occupation: [employer] Current occupational exposures/hazards: No Sexual orientation: Straight/Heterosexual Gender identity: Female Cognitive needs: No Hearing needs: No Vision needs: Yes (Patient wears glasses) Questionnaire PHQ-9 Over the last 2 weeks, how often have you been bothered by any of the following problems? 1. Little interest or pleasure in doing things: not at all 2. Feeling down, depressed, or hopeless: not at all 3. Trouble falling or staying asleep, or sleeping too much: not at all 4. Feeling tired or having little energy: not at all 5. Poor appetite or overeating: not at all 6. Feeling bad about yourself - or that you are a failure or have let yourself or your family down: not at all 7. Trouble concentrating on things, such as reading the newspaper or watching television: not at all 8. Moving or speaking so slowly that other people could have noticed. Or the opposite - being so fidgety or restless that you have been moving around a lot more than usual: not at all 9. Thoughts that you would be better off or of hurting yourself in some way: not at all Total score: 0 Depression Screening Interpretation: Negative Depression Screening Done: Yes 82532 - PHQ-9 Billing: Yes Source: Developed by Drs. Carlito Frank, Taya Swartz, Eduin Neumann and colleagues, with an educational maynor from [employer]. Thrive Questionnaire Date Thrive assessed: 03/06/24 I am a: Patient What is your living situation today?: I have a steady place to live Within the past 12 months, did the food you bought not last and you didn't have the money to get more?: Never true Within the past 12 months, did you worry whether your food would run out before you got money to buy more?: Never true Do you have trouble paying for medicines?: No Do you have trouble getting transportation to medical appointments?: No Do you have trouble paying your heating and electricity bill?: No Do you have trouble taking care of your child, family member or friend?: No Do you have trouble with day-to-day activities such as bathing, preparing meals, shopping, managing finances, etc.?: No Are you currently unemployed and looking for a job?: No Are you interested in more education?: No Please select the resources that you would like help with: None Currently or been in a relationship where the following occur: No concerns reported THRIVE Score: 0 AUDIT C Alcohol Use Questionnaire (AUDIT-C) 1. How often do you have a drink containing alcohol?: Monthly or less 2. How many drinks containing alcohol do you have on a typical day when you are drinking?: 1 or 2 3. How often do you have six or more drinks on one occasion?: Never Total Score: 1 LUCERO-7 AMB Questionnaire LUCERO-7 Date LUCERO - 7 assessed: 03/06/24 Feeling nervous, anxious, or on edge: 0 = Not at all Not being able to stop or control worryin = Not at all Worrying too much about different things: 0 = Not at all Trouble relaxin = Not at all Being so restless that it is hard to sit still: 0 = Not at all Becoming easily annoyed or irritable: 0 = Not at all Feeling afraid as if something awful might happen: 0 = Not at all Total LUCERO-7 score (0-4 normal; 5-9 mild; 10-14 moderate; 15-21 severe): 0 Source: Developed by Drs. Carlito Frank, Taya Swartz, Eduin Neumann and colleagues, with an educational maynor from [employer]. LUCERO-7 Assessment Billing LUCERO-7 Assessment Tool: LUCERO-7 Assessment 78054 Review of Systems Const Denies chills, Denies fatigue, Denies fever(s), Denies headache(s) and Denies weakness Eyes Denies change in vision ENT Denies dizziness, Denies headache(s), Denies hearing loss, Denies nasal congestion, Denies sinus pain, Denies sinus pressure and Denies sore throat Card Denies chest pain, Denies lightheadedness, Denies dyspnea and Denies other (palpitations) Resp Denies cough, Denies dyspnea and Denies wheezing GI Denies abdominal pain, Denies melena, Denies hematochezia, Denies change in bowel habits, Denies dyspepsia and Denies nausea Denies hematuria and Denies dysuria Musc Denies abnormal gait, Denies myalgias, Denies arthralgias, Denies numbness and Denies tingling Skin/Breast Denies rash, Denies unusual bruising and Denies wounds Neuro Denies abnormal gait, Denies dizziness, Denies headache(s), Denies memory loss, Denies numbness, Denies Sensory deficit (Neuro), Denies tingling and Denies weakness Psych Denies anxiety, Denies depression and Denies memory loss Endo Denies cold intolerance, Denies fatigue, Denies heat intolerance, Denies polydipsia and Denies polyuria Micky/Lymph Denies easy bleeding and Denies easy bruising Aller/Immun Denies wheezing Physical exam (Primary Care) Vital Signs: Last Vital Signs Temp 97.6 F 03/06/24 16:14 Pulse 85 03/06/24 16:14 Resp 14 03/06/24 16:14 BP 108/64 03/06/24 16:14 Pulse Ox 99 03/06/24 16:14 Oxygen Delivery Method Room Air 03/06/24 16:14 BMI result Body Mass Index 39.0 Tobacco/Smoking Status: Tobacco use Status Tobacco use date assessed 03/06/24 03/06/24 16:26 Patient Tobacco Use Status Never used Tobacco 03/06/24 16:08 e-Cigarette/Vaping Use Never Used 03/06/24 16:08 PHQ-9: PHQ-9 Score PHQ-9: Total score 0 03/06/24 16:32 Depression Screening Interpretation: Negative Thrive Assessment: Date of Thrive Assessment Date Thrive assessed 03/06/24 03/06/24 16:26 Currently or been in a relationship where the following occur: No concerns reported Const General: no acute distress, well developed, alert and awake Nutritional Appearance: well nourished and obese Orientation/consciousness: patient oriented x3 HENMT Head: Yes normocephalic and Yes atraumatic Ears: hearing grossly normal bilaterally and TM's normal bilaterally General nose exam: Normal external nose present and Normal nares present Mouth: Normal oral and palatal mucosa present and moist mucous membranes Teeth and gingiva: dentition normal Throat: Yes posterior oropharynx normal Eyes General: appearance normal, both eyes and all related structures Pupils: Equal, round and reactive pupils present and Pupil accommodation reflex normal EOM: EOMs intact bilaterally Neck Neck: Yes normal visual inspection, Yes no lymphadenopathy and Yes trachea midline Thyroid: Thyroid normal Carotids: no bruits Lymphatic: no lymphadenopathy noted Chest Chest palpation & inspection: normal inspection of the chest Resp Effort & Inspection: normal respiratory effort Auscultation: clear to auscultation bilaterally Cardio Rate: regular rate Rhythm: regular rhythm Heart sounds: S1 normal heart sound present, S2 normal heart sound present, no gallops, no murmurs and no rubs Bruits: no abdominal aortic bruits and no carotid bruits GI Palpation (GI): No Abdominal aortic bruit present, Soft to palpation, nontender, No hepatosplenomegaly present and No Rebound tenderness present Auscultation: normal bowel sounds General: Yes no CVA tenderness Back/Spine/Pelvis Back: no CVA tenderness Cervical Spine: cervical ROM normal and No Cervical spine tenderness Thoracic/Lumbar Spine: thoraco-lumbar ROM normal, No pain with thoraco-lumbar ROM, No thoracic spinal tenderness and No lumbar spinal tenderness Skin Lesions: no lesions Rashes: no rashes Trauma: no lacerations or abrasions Wounds: no wounds Nails: normal Neuro General: patient oriented x3 Cranial nerves: Yes Equal, round and reactive pupils present Cognition (Neuro): normal cognition Gait exam (Neuro): Normal gait present Motor exam (neuro): 5/5 motor strength present throughout Sensory Exam: No Sensory deficit (Neuro) Deep tendon reflexes (DTR's): Right patellar reflex intensity grade: 2+ and Left patellar reflex intensity grade: 2+ Extrem General: Yes normal to inspection and No edema Psych Appearance: grossly normal Affect: normal affect Attitude: cooperative Thought process: Normal thought process present Assessment and Plan Assessment & Plan (1) Annual physical exam: Code(s): Z00.00 - Encounter for general adult medical examination without abnormal findings Plan: 28-year-old female presents for complete physical exam (2) Polyarthralgia: Code(s): M25.50 - Pain in unspecified joint Plan: Most consistent with fibromyalgia exercise routine is essential physical therapy for hypermobility and joint protection NSAIDs trial Cymbalta refer to Sleep Medicine to rule out sleep apnea per rheumatology Consider Therapist as well (3) Fibromyalgia: Code(s): M79.7 - Fibromyalgia Plan: as above (4) Hypermobility syndrome: Code(s): M35.7 - Hypermobility syndrome Plan: as above (5) Obesity (BMI 30-39.9): Code(s): E66.9 - Obesity, unspecified Plan: discussed weight loss strategies no other comorbidities to support medications such as Ozempic or weight management referral at this time (6) Anxiety with depression: Code(s): F41.8 - Other specified anxiety disorders Plan: referred for therapy (7) Hypersomnia: Code(s): G47.10 - Hypersomnia, unspecified Plan: referred to Sleep Medicine Orders: Orders PT Evaluation and Treatment Today E66.9 - Obesity, unspecified, M35.7 - Hypermobility syndrome, M79.7 - Fibromyalgia Referrals Sleep Medicine Referral G47.10 - Hypersomnia, unspecified Nurse Navigator Referral F41.8 - Other specified anxiety disorders, M79.7 - Fibromyalgia Medications: New duloxetine (Cymbalta) 20 mg PO BID 30 days 60 caps 3RF F41.8 - Other specified anxiety disorders, M79.7 - Fibromyalgia Refilled ezetimibe 10 mg PO DAILY 90 days 90 tabs 6RF E78.00 - Pure hypercholesterolemia, unspecified Coding Level of Care Code Est Pt Level 3 (92562) Diagnoses Annual physical exam Z00.00 Polyarthralgia M25.50 Fibromyalgia M79.7 Hypermobility syndrome M35.7 Obesity (BMI 30-39.9) E66.9 Anxiety with depression F41.8 Hypersomnia G47.10 Additional Codes LUCERO-7 Assessment Billing - LUCERO-7 Assessment Tool: LUCERO-7 Assessment 54724 ([id number])
[2024-03-06 16:14] VITALS: BP 108/64; PULSE 85; RESP 14; TEMP 36.4; O2SAT 99; BMI 39.0
== END 2024-03-06 16:59 | disposition home or self-care (01) ==
PROVIDERS: PCP Family Medicine; Visit Provider Family Medicine
DX: Z00.00 Encounter for general adult medical examination without abnormal findings (principal); E66.9 Obesity, unspecified; Z68.30 Body mass index [BMI] 30.0-30.9, adult; F41.8 Other specified anxiety disorders; M79.7 Fibromyalgia; M25.50 Pain in unspecified joint; M35.7 Hypermobility syndrome; G47.10 Hypersomnia, unspecified
CPT/HCPCS: 99213; 99395

== ENCOUNTER → 2024-04-20 11:35 | Outpatient (RCR) | payer OTHER, SELFPAY ==
[2020-10-30 10:38] VITALS: BP 110/64; PULSE 68; RESP 18; TEMP 36.9; O2SAT 100; BMI 36.3
--- NOTE | 2020-10-30 11:04 | PM.HEMONCCN ---
Subjective - Subjective Chief complaint: Left leg DVT Patient: new to practice Consult date: 10/30/20 Primary Care Provider: Chevy Cunningham MD HPI - Consult Narrative Reason for consult: Left lower extremity DVT Narrative: Yonny Davison is a 24 year old female who developed left lower extremity DVT in May 2020. She says she had a fall at work which caused her to have a severe sprain in her knee. She was wearing brace which extended from ankle to mid thigh for several weeks, she was using wheelchair initially and later crutches. She developed cramping like pain in her left calf and was seen in 1 of the [facility] peripheral emergency room locations. She was diagnosed with DVT and started on Eliquis which she is currently on. She had another visit to the emergency room for chest pain, she had a repeat lower extremity Doppler as well as CT angiogram. CT angiogram was negative as per patient report. She had a 3rd lower extremity ultrasound end of August 2020 which showed no DVT but superficial thrombophlebitis. No previous history of thromboembolism. Patient is not a smoker. She was not on hormones or control pills. There is no family history of thromboembolism. Review of Systems - Constitutional Reports no additional constitutional complaints - Cardiovascular Reports no additional cardiovascular complaints - Respiratory Denies cough, Denies pain with cough, Denies dyspnea - Gastrointestinal Reports no additional gastrointestinal complaints Oncology Screenings - ECOG Performance Status ECOG Performance Status: 1 [facility] Medical History: Medical History (Last Updated 10/30/20 @ 14:57 by Taylor Hoff MD) Left leg DVT Vasovagal near syncope Family History: Family History (Last Updated 09/17/20 @ 09:27 by HEMANT Jara) Mother No problems noted. Father No problems noted. Surgical History: Surgical History (Last Updated 09/17/20 @ 09:27 by HEMANT Jara) No significant past surgical history Social History: Social History (Last Updated 10/30/20 @ 11:00 by Monica Alejandre RN) Alcohol History: Alcohol intake: current Alcohol History Details: Alcohol intake frequency: holiday/special occasion Tobacco History: Smoking Status: Never smoker Smoking status: Never smoker Home Medications and Allergies Allergies Allergy/AdvReac Type Severity Reaction Status Date / Time No Known Allergies Allergy Verified 09/17/20 09:17 Physical Exam Vital signs: Vital Signs Temp 98.4 F 10/30/20 10:38 Pulse 68 10/30/20 10:38 Resp 18 10/30/20 10:38 BP 110/64 10/30/20 10:38 Pulse Ox 100 10/30/20 10:38 Intake & Output 10/29/20 10/30/20 10/30/20 18:59 06:59 18:59 Other: Weight 92.9 kg [place] Weight in Grams 38070 Weight 92.9 kg - Constitutional Present: no acute distress - Routine HEENT Exam Head: Present: normal inspection Eye: Present: conjunctivae pink - Routine Neck Exam Present: supple - Routine Respiratory Exam Absent: respiratory distress - Routine Cardiovascular Exam Cardiovascular: Present: S1, S2 - Routine Extremities Exam Absent: pedal edema Assessment and Plan (1) DVT (deep venous thrombosis) Status: Acute 1. This is a 24-year-old woman who developed left lower extremity DVT after trauma and immobilization of left leg in brace for a few weeks. This was diagnosed in May 2020 and she has been on Eliquis ever since. Her most recent repeat Doppler was in August 2020 which shows no evidence of DVT but superficial thrombophlebitis. I explained to her that for a DVT that is provoked, 3-6 months of anticoagulation is usually recommended. This is 1st episode of DVT which occurred in a provoked setting, no family history of thromboembolism, therefore thrombophilia workup is not necessary. I told her to discontinue Eliquis in November. I went over risk factors for recurrence such as smoking, immobilization, surgery, and control pills. She is aware of symptoms for which which she will monitor herself. I thank you for this consultation.
== END | disposition home or self-care (01) ==
LOC: HO.ONC 10-30 10:28
PROVIDERS: PCP Family Medicine; Referring Provider Family Medicine; Visit Provider Internal Medicine
DX: I80.02 Phlebitis and thrombophlebitis of superficial vessels of left lower extremity (principal); Z86.718 Personal history of other venous thrombosis and embolism; Z79.01 Long term (current) use of anticoagulants
CPT/HCPCS: 99202